=== PATIENT | female | born 1955 | race Caucasian/White ===

== ENCOUNTER 2018-10-02 10:19 | Emergency (ER) | payer OTHER ==
[2018-10-02] MEDS: ALBUTEROL 0.083% (NEB) 2.5 MG/3 ML AMP HHN (11:04)
[2018-10-02] MEDS: IPRATROPIUM (NEB) 0.5 MG/2.5 ML AMP HHN (11:04)
[2018-10-02] MEDS: DEXAMETHASONE 4 MG TAB PO (12:07)
== END 2018-10-02 12:12 | disposition home or self-care (01) ==
LOC: FTE 10:19
DX: R06.2 Wheezing (principal); R07.9 Chest pain, unspecified
CPT/HCPCS: 71045; 93005; 94664; 99284-25